=== PATIENT | female | born 1960 | race Caucasian/White ===

== ENCOUNTER 2019-03-02 19:52 | Inpatient (IN) | payer MEDICAID ==
[~2019-03-02] VITALS: Ht 160 cm; Wt 137.0 kg
[2019-03-02] MEDS ORDERED: normal saline 1000ml 1,000 ML IV ONE (20:09)
[2019-03-02] MEDS ORDERED: nitroGLYCERIN 0.4mg/hour patch TD ONE (20:10)
[2019-03-02] MEDS ORDERED: albuterol 2.5 MG/3 ML nebule NEB ONE (20:10)
[2019-03-02] MEDS ORDERED: LORazepam 2 mg/ml vial IV ONE (20:15)
[2019-03-02] MEDS ORDERED: methylPREDNISolone sod succ 125mg/2ml vial IV ONE (20:15)
[2019-03-02 20:23] LABS: BASOPHILS % (AUTO) 0.2 % (0-1); EOSINOPHILS % (AUTO) 0 % (0-6); HEMATOCRIT 43.3 % (35.0-45.0); HEMOGLOBIN 13.9 g/dl (12.0-16.0); LYMPHOCYTES # (AUTO) 1.1 X10'3 (1.1-4.8); LYMPHOCYTES % (AUTO) 11.4 % (21-51); MEAN CORPUSCULAR HEMOGLOBIN 28.5 PG (27.0-31.0); MEAN PLATELET VOLUME 7.8 FL (7.4-10.4); MONOCYTES # (AUTO) 0.1 X10'3 (0-0.9); MONOCYTES % (AUTO) 1.2 % (2-12); NEUTROPHILS # (AUTO) 8.1 X10'3 (1.8-7.7); NEUTROPHILS % (AUTO) 87.2 % (42-75); PLATELET COUNT 313 X10'3 (140-440); RED BLOOD COUNT 4.87 X10'6 (4.20-5.60); RED CELL DISTRIBUTION WIDTH 15.4 % (11.5-14.5); WHITE BLOOD COUNT 9.3 X10'3 (4.5-11.0)
[2019-03-02 20:30] LABS: ABG BASE EXCESS -6.5 mmol/L (-2.0-3.0); ABG HCO3 24.1 mmol/L (22.0-26.0); ABG PCO2 (T) 72.9 mmHg (35.0-45.0); ABG PH (T) 7.137 (7.350-7.450); ALLEN'S TEST Positive; FCOHb 0.8 % (0.5-1.5); FMetHb 0.3 % (0.3-1.12); MINUTE VOLUME 20 L/min; RESPIRATORY RATE (OBSERVED) 27 b/min; TOTAL HEMOGLOBIN 14.3 G/dl (12.0-16.0)
[2019-03-02 20:37] LABS: PARTIAL THROMBOPLASTIN TIME 32 SECONDS (22-32)
[2019-03-02 20:39] LABS: ALANINE AMINOTRANSFERASE 84 U/L (12-78); ALBUMIN 3.3 G/DL (3.4-5.0); ALBUMIN/GLOBULIN RATIO 0.6 (1.1-1.5); ALKALINE PHOSPHATASE 133 IU/L (46-116); ANION GAP 14 (8-16); ASPARTATE AMINO TRANSFERASE 120 U/L (10-37); BILIRUBIN,TOTAL 0.5 MG/DL (0.1-1.0); BLOOD UREA NITROGEN 38 MG/DL (7-18); BUN/CREATININE RATIO 19.7 (6.6-38.0); CALCIUM 9.3 MG/DL (8.5-10.1); CHLORIDE 105 MMOL/L (99-107); CREATININE 1.93 MG/DL (0.40-0.90); GLUCOSE 266 MG/DL (70-104); POTASSIUM 5.1 MMOL/L (3.5-5.1); SODIUM 145 MMOL/L (135-145); TOTAL CARBON DIOXIDE 25.8 MMOL/L (24-32); TOTAL PROTEIN 8.6 G/DL (6.4-8.2); eGFR 27 ML/MIN
[2019-03-02 20:47] LABS: MAGNESIUM 1.8 MG/DL (1.5-2.4)
[2019-03-02] MEDS ORDERED: nitroGLYCERIN-Tridil 50MG/D5W 250 ML IV PRN ×2 (20:49→20:53)
[2019-03-02] MEDS ORDERED: albuterol 2.5 MG/3 ML nebule CONTNEB PRN (20:50)
[2019-03-02] MEDS ORDERED: morphine 2 MG/ML inj. syringe IV ONE (20:55)
[2019-03-02 23:41] LABS: ABG BASE EXCESS -3.5 mmol/L (-2.0-3.0); ABG HCO3 22.8 mmol/L (22.0-26.0); ABG OXYGEN SATURATION 98.1 % (95-98); ABG PCO2 (T) 45.8 mmHg (35.0-45.0); ABG PH (T) 7.315 (7.350-7.450); ABG PO2 (T) 144.3 mmHg (83-108); ALLEN'S TEST Positive; FCOHb 0.5 % (0.5-1.5); FO2Hb 97.6 % (94-100); RESPIRATORY RATE 20 b/min; RESPIRATORY RATE (OBSERVED) 26 b/min; TOTAL HEMOGLOBIN 12.9 G/dl (12.0-16.0)
[2019-03-03] VITALS (7 sets, daily range): BP systolic 91–121; BP diastolic 58–88
[2019-03-03] MEDS: heparin 25,000 UNIT/250ml bag 250 ML IV SCH ×2 (00:18→08:00)
[2019-03-03] MEDS ORDERED: furosemide 10 MG/1 ML 10ml inj IV ONE (00:55)
[2019-03-03] MEDS ORDERED: morphine 2 MG/ML inj. syringe IV PRN (01:30)
[2019-03-03] MEDS ORDERED: acetaminophen 325mg tablet PO PRN (01:30)
[2019-03-03] MEDS ORDERED: magnesium hydroxide 30ml (MOM) UD suspension PO PRN (01:30)
[2019-03-03] MEDS ORDERED: mag hydrox/Alum hydrox/simeth 30ml oral suspension PO PRN (01:30)
[2019-03-03] MEDS ORDERED: ondansetron/PF 4mg/2ml inj IV PRN (01:30)
[2019-03-03] MEDS ORDERED: MESSAGE TO PHARMACY PO ONE (01:35)
[2019-03-03] MEDS ORDERED: dextrose ORAL solution 15 GM/59 ML bottle PO PRN ×2 (01:35)
[2019-03-03] MEDS ORDERED: albuterol 2.5 MG/3 ML nebule NEB PRN (01:35)
[2019-03-03] MEDS ORDERED: glucagon, human recombinant 1mg kit SUBCUT PRN (01:35)
[2019-03-03] MEDS ORDERED: dextrose 50%-water 50ml dispensing syringe IV PRN ×2 (01:35)
[2019-03-03] MEDS ORDERED: INSU100I31 SQ (02:45)
[2019-03-03] MEDS ORDERED: ALB0.5UD IH (02:45)
[2019-03-03] MEDS ORDERED: ASPI-611 PO (02:45)
[2019-03-03] MEDS ORDERED: BUPR-344 PO (02:46)
[2019-03-03] MEDS ORDERED: CARSR60C PO (02:49)
[2019-03-03] MEDS ORDERED: APIX5TAB3 PO (02:49)
[2019-03-03] MEDS ORDERED: FLUT16SP2 BOTHNARES (02:49)
[2019-03-03] MEDS ORDERED: ESCI20TA45 PO (02:49)
[2019-03-03] MEDS ORDERED: CARV3.12 PO (02:49)
[2019-03-03] MEDS ORDERED: LISI2.5T2 PO (02:55)
[2019-03-03] MEDS ORDERED: ISOS30TA9 PO (02:55)
[2019-03-03] MEDS ORDERED: PRAV80TA3 PO (02:55)
[2019-03-03] MEDS ORDERED: OMEP20CA15 PO (02:55)
[2019-03-03] MEDS ORDERED: LORA10TA7 PO (02:55)
[2019-03-03] MEDS ORDERED: GABA-532 PO (02:55)
--- NOTE | 2019-03-03 04:00 | NUR ---
Patient in room PCU 3025. I have received report from Rahat PEREZ by telephone and had the opportunity to ask questions and assume patient care. Patient then arrived to the unit, stable, with all belongings.
--- NOTE | 2019-03-03 05:30 | NUR ---
END NOC NOTE Patient has been settled in the room. Nitro gtt is at 5mcg/hr, heparin at 10ml/hr, NS at 20ml/hr. Bipap was placed back on at 40% FiO2. Patient had not urinated during her ER stay, bladder scanner showed 720, MD Dunaway notified and baugh catheter placed by protocol. Patient able to turn in bed independently but becomes very short of breath and heart rate changes to 120s. 2 RN skin check was done, along with taking wound care pictures. Will continue to monitor.
--- NOTE | 2019-03-03 06:32 | NUR ---
Patient in room PCU 3025. I have received report from CHRIS Liu and had the opportunity to ask questions and assume patient care.
[2019-03-03] MEDS: ipratropium/albuterol 3ml nebule NEB SCH ×5 (06:55→23:09)
[2019-03-03] MEDS ORDERED: heparin 10,000 units/1 ML INJ IV ONE (07:40)
[2019-03-03] MEDS: furosemide 20 MG/2 ML vial IV SCH ×2 (07:44→20:00)
[2019-03-03] MEDS ORDERED: DILT120T4 PO (07:45)
--- NOTE | 2019-03-03 07:47 | NUR ---
Pagetarik oliver regarding critical lab results PAGER ID: [phone] MESSAGE: [phone]: Marquita Feliciano: Troponin came back 2.01, down 0.22. -Roxanne [phone]
--- NOTE | 2019-03-03 07:50 | NUR ---
Brittneyd Rock PAGER ID: [phone] MESSAGE: [phone] - aMrquita Feliciano - Please review pt med rec for morning meds. Thank you! -Roxanne [phone]
[2019-03-03 08:11] LABS: HEMOGLOBIN A1C 5.8 % (4.5-6.2)
[2019-03-03] MEDS: insulin Lispro (HumaLOG) vial - multi-dose SQ SCH ×3 (09:02→19:58)
[2019-03-03] MEDS ORDERED: non-formulary drug (Albuterol Sulfate Nebs* (Proventil Nebs*) 2.5 MG) IH PRN (10:05)
--- NOTE | 2019-03-03 10:21 | NUR ---
New orders placed per MD for a wound consult, nystatin powder, to discontinue normal saline @ 20ml/hr as well as eliqus as pt is on heparin gtt.
[2019-03-03] MEDS ORDERED: diltiazem 30mg tablet PO SCH (10:22)
[2019-03-03] MEDS ORDERED: isosorbide dinitrate 30mg tablet PO SCH (10:30)
[2019-03-03 11:16] LABS: CHOL/HDL RATIO 1.9 (0.00-4.99); CHOLESTEROL 121 MG/DL (0-200); HDL CHOLESTEROL 64 MG/DL (35-60); LDL CHOLESTEROL 51 MG/DL (50-100); TRIGLYCERIDES 53 MG/DL (20-135)
[2019-03-03] MEDS: buPROPion SR 150mg tablet PO SCH ×2 (11:49→20:00)
[2019-03-03] MEDS: aspirin 81mg tablet.DR PO SCH (11:49)
[2019-03-03] MEDS: lisinopril 2.5mg tablet PO SCH (11:49)
[2019-03-03] MEDS: carVEDilol 3.125mg tablet PO SCH ×2 (11:49→20:00)
[2019-03-03] MEDS: fluticasone nasal spray 16GM bottle NS SCH (11:49)
[2019-03-03] MEDS: pantoprazole 40mg Tablet.DR PO SCH (11:49)
[2019-03-03] MEDS: nystatin 15 GM powder TP SCH ×3 (11:50→21:00)
[2019-03-03] MEDS: ESCITALOPRAM OXALATE 5 MG TABLET PO SCH (11:50)
[2019-03-03] MEDS: morphine 2 MG/ML inj. syringe IV PRN (12:15)
[2019-03-03] MEDS ORDERED: gabapentin 300mg capsule PO SCH (13:00)
[2019-03-03 14:52] LABS: PARTIAL THROMBOPLASTIN TIME 47 SECONDS (22-32)
--- NOTE | 2019-03-03 18:00 | NUR ---
Patient in room PCU 3025. I have received report from Roxanne PEREZ and had the opportunity to ask questions and assume patient care.
--- NOTE | 2019-03-03 18:34 | NUR ---
Problems reprioritized. Patient report given, questions answered & plan of care reviewed with CHRIS Fair.
[2019-03-03] MEDS ORDERED: apixaban 5mg tablet PO SCH (20:00)
[2019-03-03] MEDS: pravastatin 40mg tablet PO SCH (20:00)
[2019-03-03] MEDS: gabapentin 300mg capsule PO SCH (20:00)
[2019-03-03] MEDS ORDERED: carVEDilol 3.125mg tablet PO SCH (20:00)
[2019-03-03 20:44] LABS: PARTIAL THROMBOPLASTIN TIME 47 SECONDS (22-32)
[2019-03-03] MEDS ORDERED: insulin glargine (Lantus) pen - multi-dose SQ SCH (21:00)
[2019-03-03] MEDS: insulin glargine (Lantus) pen - multi-dose SQ SCH (22:33)
[2019-03-04] VITALS (9 sets, daily range): BP systolic 86–103; BP diastolic 54–73
[2019-03-04 01:58] LABS: BASOPHILS # (AUTO) 0.1 X10'3 (0-0.2); BASOPHILS % (AUTO) 0.4 % (0-1); EOSINOPHILS % (AUTO) 0.1 % (0-6); HEMATOCRIT 33.6 % (35.0-45.0); HEMOGLOBIN 10.8 g/dl (12.0-16.0); LYMPHOCYTES # (AUTO) 2.4 X10'3 (1.1-4.8); LYMPHOCYTES % (AUTO) 15.5 % (21-51); MEAN CORPUSCULAR HEMOGLOBIN 27.7 PG (27.0-31.0); MEAN CORPUSCULAR HGB CONC 32.1 g/dL (33.0-36.5); MEAN CORPUSCULAR VOLUME 86.3 FL (78-98); MEAN PLATELET VOLUME 7.7 FL (7.4-10.4); MONOCYTES # (AUTO) 0.7 X10'3 (0-0.9); MONOCYTES % (AUTO) 4.5 % (2-12); NEUTROPHILS # (AUTO) 12.5 X10'3 (1.8-7.7); NEUTROPHILS % (AUTO) 79.5 % (42-75); PLATELET COUNT 231 X10'3 (140-440); WHITE BLOOD COUNT 15.8 X10'3 (4.5-11.0)
[2019-03-04 02:06] LABS: ALANINE AMINOTRANSFERASE 51 U/L (12-78); ALBUMIN 2.7 G/DL (3.4-5.0); ALBUMIN/GLOBULIN RATIO 0.7 (1.1-1.5); ALKALINE PHOSPHATASE 82 IU/L (46-116); ANION GAP 6 (8-16); ASPARTATE AMINO TRANSFERASE 37 U/L (10-37); BILIRUBIN,TOTAL 0.3 MG/DL (0.1-1.0); BLOOD UREA NITROGEN 51 MG/DL (7-18); BUN/CREATININE RATIO 25.5 (6.6-38.0); CALCIUM 8.4 MG/DL (8.5-10.1); CHLORIDE 106 MMOL/L (99-107); GLUCOSE 118 MG/DL (70-104); POTASSIUM 3.9 MMOL/L (3.5-5.1); SODIUM 141 MMOL/L (135-145); TOTAL PROTEIN 6.4 G/DL (6.4-8.2); eGFR 26 ML/MIN
[2019-03-04] MEDS: ipratropium/albuterol 3ml nebule NEB SCH ×6 (03:22→21:23)
--- NOTE | 2019-03-04 05:00 | NUR ---
END NOC NOTE Patient has slept well tonight. MD Dunaway notified about low blood pressures, was ordered to discontinue nitro drip and okay to hold lasix and coreg. Heparin drip still at 12ml/hr and therapeutic all night. Will continue to monitor.
--- NOTE | 2019-03-04 06:22 | NUR ---
Patient in room PCU 3024J. I have received report from Aretha PEREZ and had the opportunity to ask questions and assume patient care.
--- NOTE | 2019-03-04 06:50 | NUR ---
Problems reprioritized. Patient report given, questions answered & plan of care reviewed with Julia PEREZ.
[2019-03-04] MEDS: ESCITALOPRAM OXALATE 5 MG TABLET PO SCH (07:46)
[2019-03-04] MEDS: carVEDilol 3.125mg tablet PO SCH ×2 (07:46→19:52)
[2019-03-04] MEDS: lisinopril 2.5mg tablet PO SCH (07:47)
[2019-03-04] MEDS: gabapentin 300mg capsule PO SCH ×2 (07:47→19:51)
[2019-03-04] MEDS: buPROPion SR 150mg tablet PO SCH ×2 (07:47→19:52)
[2019-03-04] MEDS: furosemide 20 MG/2 ML vial IV SCH ×2 (07:47→19:51)
[2019-03-04] MEDS: aspirin 81mg tablet.DR PO SCH (07:47)
[2019-03-04] MEDS: loratadine 10mg tablet PO SCH (07:47)
[2019-03-04] MEDS: nystatin 15 GM powder TP SCH ×3 (07:47→20:08)
[2019-03-04] MEDS: fluticasone nasal spray 16GM bottle NS SCH (07:48)
[2019-03-04] MEDS: pantoprazole 40mg Tablet.DR PO SCH (08:00)
[2019-03-04] MEDS: heparin 10,000 units/1 ML INJ IV PRN ×2 (08:55→22:55)
[2019-03-04] MEDS: heparin 25,000 UNIT/250ml bag 250 ML IV SCH ×3 (08:57→22:57)
[2019-03-04] MEDS: insulin Lispro (HumaLOG) vial - multi-dose SQ SCH (09:27)
[2019-03-04] MEDS ORDERED: VANCOMYCIN LEVEL IV ONE (10:30)
[2019-03-04] MEDS: morphine 2 MG/ML inj. syringe IV PRN (17:26)
--- NOTE | 2019-03-04 18:12 | NUR ---
Problems reprioritized. Patient report given, questions answered & plan of care reviewed with Aretha PEREZ.
[2019-03-04] MEDS: pravastatin 40mg tablet PO SCH (19:51)
[2019-03-04] MEDS: lactobacillus rhamnosus 10,000 MMU CELLS/CAPSULE PO SCH (19:52)
[2019-03-04] MEDS: insulin glargine (Lantus) pen - multi-dose SQ SCH (21:43)
[2019-03-05] VITALS (9 sets, daily range): BP systolic 82–100; BP diastolic 52–66
[2019-03-05] MEDS: ipratropium/albuterol 3ml nebule NEB SCH ×5 (02:27→20:04)
--- NOTE | 2019-03-05 03:34 | NUR ---
Patient in room PCU 3025. I have received report from Julia PEREZ and had the opportunity to ask questions and assume patient care.
[2019-03-05 05:37] LABS: BASOPHILS # (AUTO) 0.1 X10'3 (0-0.2); BASOPHILS % (AUTO) 0.6 % (0-1); EOSINOPHILS # (AUTO) 0.1 X10'3 (0-0.9); EOSINOPHILS % (AUTO) 0.5 % (0-6); HEMATOCRIT 33.3 % (35.0-45.0); LYMPHOCYTES # (AUTO) 2.9 X10'3 (1.1-4.8); LYMPHOCYTES % (AUTO) 23.3 % (21-51); MEAN CORPUSCULAR VOLUME 84.7 FL (78-98); MEAN PLATELET VOLUME 8.5 FL (7.4-10.4); MONOCYTES # (AUTO) 0.8 X10'3 (0-0.9); MONOCYTES % (AUTO) 6.3 % (2-12); NEUTROPHILS # (AUTO) 8.6 X10'3 (1.8-7.7); NEUTROPHILS % (AUTO) 69.3 % (42-75); PLATELET COUNT 213 X10'3 (140-440); RED BLOOD COUNT 3.93 X10'6 (4.20-5.60); RED CELL DISTRIBUTION WIDTH 14.7 % (11.5-14.5); WHITE BLOOD COUNT 12.5 X10'3 (4.5-11.0)
[2019-03-05 05:42] LABS: ALANINE AMINOTRANSFERASE 42 U/L (12-78); ALBUMIN 2.7 G/DL (3.4-5.0); ALBUMIN/GLOBULIN RATIO 0.7 (1.1-1.5); ALKALINE PHOSPHATASE 77 IU/L (46-116); ANION GAP 6 (8-16); ASPARTATE AMINO TRANSFERASE 28 U/L (10-37); BILIRUBIN,TOTAL 0.4 MG/DL (0.1-1.0); BLOOD UREA NITROGEN 46 MG/DL (7-18); BUN/CREATININE RATIO 28.2 (6.6-38.0); CALCIUM 8.3 MG/DL (8.5-10.1); CHLORIDE 103 MMOL/L (99-107); CREATININE 1.63 MG/DL (0.40-0.90); GLUCOSE 96 MG/DL (70-104); POTASSIUM 3.2 MMOL/L (3.5-5.1); SODIUM 141 MMOL/L (135-145); TOTAL CARBON DIOXIDE 31.7 MMOL/L (24-32); TOTAL PROTEIN 6.5 G/DL (6.4-8.2); eGFR 32 ML/MIN
--- NOTE | 2019-03-05 05:55 | NUR ---
END NOC NOTE Patient slept well tonight. New IV place on right wrist. Heparin held at 0554 for critical PTT value; will pass on to day shift nurse. Will continue to monitor.
--- NOTE | 2019-03-05 06:30 | NUR ---
Problems reprioritized. Patient report given, questions answered & plan of care reviewed with Julia PEREZ.
[2019-03-05] MEDS ORDERED: magnesium 4gm in 100ml NS 100 ML IV PRN (08:05)
[2019-03-05] MEDS ORDERED: potassium CL 10mEq/100ml bag 100 ML IV PRN (08:05)
[2019-03-05] MEDS ORDERED: magnesium Cl slow-release 64mg tablet PO PRN (08:05)
[2019-03-05] MEDS ORDERED: potassium Cl 20 mEq SR tablet PO PRN (08:05)
[2019-03-05] MEDS: furosemide 20 MG/2 ML vial IV SCH ×2 (08:17→19:16)
[2019-03-05] MEDS: fluticasone nasal spray 16GM bottle NS SCH (08:17)
[2019-03-05] MEDS: lisinopril 2.5mg tablet PO SCH (08:18)
[2019-03-05] MEDS: loratadine 10mg tablet PO SCH (08:18)
[2019-03-05] MEDS: potassium Cl 20 mEq SR tablet PO PRN ×3 (08:18→17:42)
[2019-03-05] MEDS: aspirin 81mg tablet.DR PO SCH (08:18)
[2019-03-05] MEDS: gabapentin 300mg capsule PO SCH ×2 (08:18→19:17)
[2019-03-05] MEDS: buPROPion SR 150mg tablet PO SCH ×2 (08:18→19:17)
[2019-03-05] MEDS: lactobacillus rhamnosus 10,000 MMU CELLS/CAPSULE PO SCH ×2 (08:18→19:16)
[2019-03-05] MEDS: pantoprazole 40mg Tablet.DR PO SCH (08:18)
[2019-03-05] MEDS: ESCITALOPRAM OXALATE 5 MG TABLET PO SCH (08:19)
[2019-03-05] MEDS: carVEDilol 3.125mg tablet PO SCH ×2 (08:19→19:17)
[2019-03-05] MEDS: K and/or MAG REPLACEMENT MC SCH ×2 (08:19→20:00)
[2019-03-05] MEDS: nystatin 15 GM powder TP SCH ×3 (08:19→19:18)
[2019-03-05] MEDS: heparin 25,000 UNIT/250ml bag 250 ML IV SCH (08:30)
[2019-03-05] MEDS: morphine 2 MG/ML inj. syringe IV PRN ×2 (12:26→18:53)
--- NOTE | 2019-03-05 18:00 | NUR ---
Patient in room PCU 3025. I have received report from Julia PEREZ and had the opportunity to ask questions and assume patient care.
--- NOTE | 2019-03-05 18:29 | NUR ---
Problems reprioritized. Patient report given, questions answered & plan of care reviewed with Aretha PEREZ.
[2019-03-05] MEDS: apixaban 5mg tablet PO SCH (19:16)
[2019-03-05] MEDS: pravastatin 40mg tablet PO SCH (19:17)
[2019-03-05] MEDS: insulin glargine (Lantus) pen - multi-dose SQ SCH (21:58)
[2019-03-06] VITALS: BP 98/56
[2019-03-06] MEDS: ipratropium/albuterol 3ml nebule NEB SCH ×4 (00:25→12:13)
[2019-03-06 02:00] VITALS: BP 93/60
[2019-03-06 04:00] VITALS: BP 95/56
--- NOTE | 2019-03-06 05:00 | NUR ---
END NOC NOTE Patient has been very calm tonight, most of the night was alert and oriented. Patient was had nausea and vomited once tonight, refused to take any medication for it. Tylenol was given for headache. Patient prefers to walk to the bathroom than use urinal at bedside. Will continue to monitor. Addendum: 03/06/19 at 0627 by Aretha Ward RN Wrong patient please be aware.
[2019-03-06 05:45] LABS: BASOPHILS % (AUTO) 0.1 % (0-1); EOSINOPHILS # (AUTO) 0.1 X10'3 (0-0.9); EOSINOPHILS % (AUTO) 0.5 % (0-6); HEMATOCRIT 32.3 % (35.0-45.0); HEMOGLOBIN 10.6 g/dl (12.0-16.0); LYMPHOCYTES # (AUTO) 2.3 X10'3 (1.1-4.8); LYMPHOCYTES % (AUTO) 20.2 % (21-51); MEAN CORPUSCULAR HEMOGLOBIN 27.7 PG (27.0-31.0); MEAN CORPUSCULAR HGB CONC 32.7 g/dL (33.0-36.5); MEAN CORPUSCULAR VOLUME 84.5 FL (78-98); MEAN PLATELET VOLUME 8.1 FL (7.4-10.4); MONOCYTES % (AUTO) 8.8 % (2-12); NEUTROPHILS % (AUTO) 70.4 % (42-75); PLATELET COUNT 222 X10'3 (140-440); RED BLOOD COUNT 3.82 X10'6 (4.20-5.60); RED CELL DISTRIBUTION WIDTH 14.6 % (11.5-14.5); WHITE BLOOD COUNT 11.3 X10'3 (4.5-11.0)
[2019-03-06] MEDS: morphine 2 MG/ML inj. syringe IV PRN ×2 (05:59→11:47)
[2019-03-06 06:15] LABS: ALANINE AMINOTRANSFERASE 39 U/L (12-78); ALBUMIN 2.8 G/DL (3.4-5.0); ALBUMIN/GLOBULIN RATIO 0.7 (1.1-1.5); ALKALINE PHOSPHATASE 75 IU/L (46-116); ANION GAP 8 (8-16); ASPARTATE AMINO TRANSFERASE 20 U/L (10-37); BILIRUBIN,TOTAL 0.5 MG/DL (0.1-1.0); BLOOD UREA NITROGEN 46 MG/DL (7-18); BUN/CREATININE RATIO 24.7 (6.6-38.0); CALCIUM 8.3 MG/DL (8.5-10.1); CHLORIDE 102 MMOL/L (99-107); CREATININE 1.86 MG/DL (0.40-0.90); GLUCOSE 92 MG/DL (70-104); POTASSIUM 3.6 MMOL/L (3.5-5.1); SODIUM 142 MMOL/L (135-145); TOTAL CARBON DIOXIDE 31.6 MMOL/L (24-32); TOTAL PROTEIN 6.6 G/DL (6.4-8.2); eGFR 28 ML/MIN
--- NOTE | 2019-03-06 06:24 | NUR ---
Problems reprioritized. Patient report given, questions answered & plan of care reviewed with Dee Dee PEREZ. Addendum: 03/06/19 at 0627 by Aretha Ward RN report with Julia PEREZ.
[2019-03-06 06:30] VITALS: BP 103/60
--- NOTE | 2019-03-06 06:43 | NUR ---
Patient in room PCU 3029D. I have received report from Aretha PEREZ and had the opportunity to ask questions and assume patient care.
[2019-03-06] MEDS: K and/or MAG REPLACEMENT MC SCH (08:00)
[2019-03-06] MEDS: furosemide 20 MG/2 ML vial IV SCH (08:22)
[2019-03-06] MEDS: fluticasone nasal spray 16GM bottle NS SCH (08:23)
[2019-03-06] MEDS: ESCITALOPRAM OXALATE 5 MG TABLET PO SCH (08:23)
[2019-03-06] MEDS: loratadine 10mg tablet PO SCH (08:23)
[2019-03-06] MEDS: pantoprazole 40mg Tablet.DR PO SCH (08:24)
[2019-03-06] MEDS: apixaban 5mg tablet PO SCH (08:24)
[2019-03-06] MEDS: carVEDilol 3.125mg tablet PO SCH (08:24)
[2019-03-06] MEDS: lisinopril 2.5mg tablet PO SCH (08:24)
[2019-03-06] MEDS: gabapentin 300mg capsule PO SCH (08:24)
[2019-03-06] MEDS: aspirin 81mg tablet.DR PO SCH (08:24)
[2019-03-06] MEDS: lactobacillus rhamnosus 10,000 MMU CELLS/CAPSULE PO SCH (08:24)
[2019-03-06] MEDS: buPROPion SR 150mg tablet PO SCH (08:24)
[2019-03-06] MEDS: nystatin 15 GM powder TP SCH ×2 (08:26→12:56)
--- NOTE | 2019-03-06 10:00 | NUR ---
Paged Dr Wilkerson PAGER ID: [phone] MESSAGE: Julia ott [phone]. RE Sanchez Feliciano [id number]. Pt having lots of pain in knees and feet r/t neuropathy and arthritis. (uses CBD oil at home.) Is there additional pain/anti-inflammatory that can be ordered? Currently using steady lift to transfer pt.
[2019-03-06] MEDS ORDERED: VANCOMYCIN LEVEL IV ONE (10:30)
[2019-03-06 11:00] VITALS: BP 96/59
[2019-03-06] MEDS ORDERED: LEVO500T2 PO (11:03)
[2019-03-06] MEDS ORDERED: POTA20TA19 PO (11:03)
[2019-03-06] MEDS ORDERED: FURO-149 PO (11:03)
--- NOTE | 2019-03-06 11:19 | NUR ---
Received critical vanco trough 22.5. Spoke to pharmacy and was told to hold 11 am dose and they will readjust dose and time. notified PAGER ID: [phone] MESSAGE: Julia ott [phone]. Sanchez Hsu [id number]. Critical vanco trough 22.5. Holding 11 am dose per pharmacy and they will readjust dose/time
--- NOTE | 2019-03-06 11:30 | NUR ---
Garrett removed, patient tolerated well. Will monitor that patient voids before discharge at 1600
[2019-03-06] MEDS ORDERED: VANCOmycin 1250MG/NS 250ml Bag 250 ML IV SCH (12:00)
[2019-03-06 15:00] VITALS: BP 101/65
--- NOTE | 2019-03-06 16:50 | NUR ---
Per MD, patient stable for discharge home. Discharge packet provided, education provided. New prescriptions were already faxed in to [facility] in [place]. Patient able to void with no issues post catheter removal earlier today. Discharge wound photos taken and placed in chart. IV removed with catheter intact and patient disconnected from mobile. [facility] transport escorted patient out via wheelchair, with oxygen tank, and will be driving patient home to [place].
[2019-03-07] MEDS ORDERED: VANCOMYCIN LEVEL IV ONE (10:30)
== END 2019-03-06 16:48 | disposition home or self-care (01) | DRG 190 ==
LOC: ER 19:53 → ED HOLD 03-03 01:29 → PCU 3S 03-03 03:45
PROVIDERS: ADMIT Internal Medicine; ATTEND Family Medicine
PROC: 5A09357 Assistance with Respiratory Ventilation, Less than 24 Consecutive Hours, Continuous Positive Airway Pressure (ICD-10-PCS; principal; 2019-03-02)
PROC: 5A09357 Assistance with Respiratory Ventilation, Less than 24 Consecutive Hours, Continuous Positive Airway Pressure (ICD-10-PCS; 2019-03-03)
PROC: 5A09357 Assistance with Respiratory Ventilation, Less than 24 Consecutive Hours, Continuous Positive Airway Pressure (ICD-10-PCS; 2019-03-04)
PROC: 5A09357 Assistance with Respiratory Ventilation, Less than 24 Consecutive Hours, Continuous Positive Airway Pressure (ICD-10-PCS; 2019-03-05)
PROC: 5A09357 Assistance with Respiratory Ventilation, Less than 24 Consecutive Hours, Continuous Positive Airway Pressure (ICD-10-PCS; 2019-03-06)
DX: I21.4 Non-ST elevation (NSTEMI) myocardial infarction (principal); J96.21 Acute and chronic respiratory failure with hypoxia; I50.23 Acute on chronic systolic (congestive) heart failure; E87.2 Acidosis; E11.22 Type 2 diabetes mellitus with diabetic chronic kidney disease; E11.42 Type 2 diabetes mellitus with diabetic polyneuropathy; E66.01 Morbid (severe) obesity due to excess calories; E78.5 Hyperlipidemia, unspecified; F12.90 Cannabis use, unspecified, uncomplicated; I13.0 Hypertensive heart and chronic kidney disease with heart failure and stage 1 through stage 4 chronic kidney disease, or unspecified chronic kidney disease; I48.0 Paroxysmal atrial fibrillation; J44.1 Chronic obstructive pulmonary disease with (acute) exacerbation; J96.22 Acute and chronic respiratory failure with hypercapnia; N18.9 Chronic kidney disease, unspecified; Z66 Do not resuscitate; K21.9 Gastro-esophageal reflux disease without esophagitis; F32.9 Major depressive disorder, single episode, unspecified; G47.30 Sleep apnea, unspecified; F10.10 Alcohol abuse, uncomplicated; Z79.01 Long term (current) use of anticoagulants; Z87.891 Personal history of nicotine dependence; Z90.710 Acquired absence of both cervix and uterus; Z99.81 Dependence on supplemental oxygen; Z79.899 Other long term (current) drug therapy; Z68.43 Body mass index [BMI] 50.0-59.9, adult
CPT/HCPCS: 36415; 36600; 71045; 80053; 80061; 80202; 82803; 82948; 83036; 83605; 83735; 83880; 84484; 85018; 85025; 85610; 85730; 87040; 87081; 93005; 93306; 94640; 94660; 94760; 96365; 96375; 97116; 97161; 97530; 99291; 99292; G0378; J1644; J1815; J1940; J2060; J2270; J2930; J3370; J3490